=== PATIENT | female | born 1990 | race Caucasian/White ===

== ENCOUNTER 2016-05-10 11:11 | Emergency (ER) | payer OTHER ==
[~2016-05-10] VITALS: Ht 162.6 cm; Wt 68.8 kg
[2016-05-10 11:16] VITALS: TEMP 37.1; Ht 162.6 cm; Wt 68.8 kg
[2016-05-10] MEDS ORDERED: IBUP-1428 PO (11:46)
[2016-05-10 12:03] LABS: BASO % 0.6 %; BASO ABS # 0.04 K/uL (0-0.2); COMPLETE YES; EOS % 2.1 %; HEMATOCRIT 42.5 % (37-47); IG% 0.1 %; LYMPH % 20.7 %; LYMPH ABS # 1.41 K/uL (1.2-3.4); MEAN CELL VOLUME 85.7 fL (80-100); MEAN CORPUSCULAR HEMOGLOBIN 30.8 pg (25-34); MEAN PLATELET VOLUME 10.6 fL (7.4-10.4); MONO % 8.8 %; NEUT % 67.7 %; PLATELET COUNT 199 K/uL (130-400); RED BLOOD COUNT 4.96 M/uL (4.2-5.4)
[2016-05-10 12:28] LABS: BUN/CREATININE RATIO 7.7 (10-20); CALCIUM 9.5 mg/dl (8.5-10.1); CREATININE 1.2 mg/dl (0.60-1.20); POTASSIUM 3.6 mmol/L (3.5-5.1)
[2016-05-10 12:31] LABS: ALB/GLOB RATIO 1.1 (0.9-2)
[2016-05-10 13:26] LABS: URINE APPEARANCE CLOUDY (CLEAR); URINE BILIRUBIN NEG (NEG); URINE COLOR DK YELLOW; URINE EPITHELIAL CELL AUTO >30 /lpf (0-5); URINE NITRITE NEG (NEG); URINE SPECIFIC GRAVITY 1.025 (1.000-1.030); UROBILINOGEN NEG (NEG); ZZUR CULT IF INDIC CLEAN CATCH NO
[2016-05-10 13:31] LABS: MANUAL MICROSCOPIC REQUIRED? NO; REVIEW REQ? NO
[2016-05-10 14:33] VITALS: BP 124/60; PULSE 71; O2SAT 97
--- NOTE | 2016-05-10 15:03 | DIAGNOSTIC IMAGING REPORT ---
RIGHT RIBS UNILATERAL WITH PA CHEST CLINICAL HISTORY: right rib pain eval for fx/ptx/pna Right COMPARISON STUDY: None FINDINGS: Negative right ribs. Negative chest. IMPRESSION: Negative study Electronically signed by: Ger Rae M.D. 05/10/2016 3:01 PM Dictated Date/Time: 05/10/2016 3:01 PM
--- NOTE | 2016-05-10 17:38 | EMERGENCY ROOM VISIT NOTE ---
History Report prepared by Gina: Lori Huynh Under the Supervision of: Dr. Jayro Gordon M.D. First contact with patient: 12:21 Chief Complaint: GI ASSESSMENT Stated Complaint: PAIN IN MIDDLE OF CHEST AROUND RIGHT SIDE TO BACK Nursing Triage Summary: pt complains pain started 2 weeks ago in lower sternal area and radiated around to the right side of chest into the middle of back. [facility] but no relief. rate pain of 9/10 History of Present Illness The patient is a 26 year old female who presents to the Emergency Room with complaints of constant central chest pain that began 2 weeks ago. The pain radiates underneath her breasts through to her back. She describes the pain as stabbing. She notes that she cannot take as deep of a breath as usual because it makes her pain worse. She also complains of a cough for 4-5 days. She had a fever of 100.9 when her cough initially started but has not had a fever since then. The patient was initially seen at [facility] a week ago and had a chest x-ray and CT which were unrevealing. She was diagnosed with a UTI at that time. They were suspicious that the patient may have passed a kidney stone although the patient did not complain of any abdominal/flank pain at that time. She was put on Cipro and finished the course 2 days ago. The patient is not on control pills. She smokes about a half pack of cigarettes a day. She has not had any long trips recently. She does not have a personal history of blood clots. Denies leg swelling or pain or other complaints. Source of History: patient Onset: 2 weeks ago Position: chest Quality: stabbing Timing: constant Modifying Factors (Worsening): breathing (deep breaths) Associated Symptoms: + cough, + fevers (resolved) Review of Systems See HPI for pertinent positives & negatives. A total of 10 systems reviewed and were otherwise negative. Past Medical & Surgical Medical Problems: (1) Asthma Family History Cancer Diabetes mellitus FHx: gallbladder disease Heart disease Hypertension Kidney disease Kidney stones Lung disease Social History Smoking Status: Current Every Day Smoker Alcohol Use: none Marital Status: in relationship Housing Status: lives with significant other Occupation Status: employed Current/Historical Medications Scheduled PRN Ibuprofen (Motrin), 800 MG PO Q8H PRN for Pain Allergies Coded Allergies: [place] (Unverified Allergy, Unknown, HIVES, 05/10/16) Physical Exam Vital Signs Date Time Temp Pulse Resp B/P Pulse Ox O2 Delivery O2 Flow Rate FiO2 05/10/16 14:33 71 18 124/60 97 Room Air 05/10/16 12:49 64 18 118/66 100 Room Air 05/10/16 12:05 66 05/10/16 11:16 37.1 94 16 113/70 93 Room Air Physical Exam Constitutional: Vital signs reviewed. Eyes: Pupils are equal round reactive to light. Conjunctiva are noninjected. ENT: Pharynx is clear without erythema or exudate. Mucous membranes are moist. Neck supple without meningeal signs. Respiratory: Clear to auscultation bilaterally. Breath sounds are equal bilaterally. Cardiovascular: Regular rate and rhythm. No rubs or gallops. GI: Soft, nondistended and nontender. Bowel sounds are present. Musculoskeletal: No peripheral edema. No lower extremity tenderness. Tenderness over the right lower posterior and mid ribs without crepitus. Integumentary: No cyanosis. Neurological: The patient is awake and alert. No focal deficits. Psychiatric: Normal affect. Medical Decision & Procedures ER Provider Diagnostic Interpretation: Radiology results as stated below per my review and the radiologist's interpretation: RIGHT RIBS UNILATERAL WITH PA CHEST CLINICAL HISTORY: right rib pain eval for fx/ptx/pna Right COMPARISON STUDY: None FINDINGS: Negative right ribs. Negative chest. IMPRESSION: Negative study Electronically signed by: Ger Rae M.D. 05/10/2016 3:01 PM Dictated Date/Time: 05/10/2016 3:01 PM Laboratory Results 05/10/16 11:35 Red Blood Count 4.96, Mean Corpuscular Volume 85.7, Mean Corpuscular Hemoglobin 30.8, Mean Corpuscular Hemoglobin Concent 36.0, Mean Platelet Volume 10.6, Neutrophils (%) (Auto) 67.7, Lymphocytes (%) (Auto) 20.7, Monocytes (%) (Auto) 8.8, Eosinophils (%) (Auto) 2.1, Basophils (%) (Auto) 0.6, Neutrophils # (Auto) 4.60, Lymphocytes # (Auto) 1.41, Monocytes # (Auto) 0.60, Eosinophils # (Auto) 0.14, Basophils # (Auto) 0.04 05/10/16 11:35 Test 05/10/16 11:35 05/10/16 12:44 05/10/16 13:06 White Blood Count 6.80 K/uL (4.8-10.8) Red Blood Count 4.96 M/uL (4.2-5.4) Hemoglobin 15.3 g/dL (12.0-16.0) Hematocrit 42.5 % (37-47) Mean Corpuscular Volume 85.7 fL (80-100) Mean Corpuscular Hemoglobin 30.8 pg (25-34) Mean Corpuscular Hemoglobin Concent 36.0 g/dl (32-36) Platelet Count 199 K/uL (130-400) Mean Platelet Volume 10.6 fL (7.4-10.4) Neutrophils (%) (Auto) 67.7 % Lymphocytes (%) (Auto) 20.7 % Monocytes (%) (Auto) 8.8 % Eosinophils (%) (Auto) 2.1 % Basophils (%) (Auto) 0.6 % Neutrophils # (Auto) 4.60 K/uL (1.4-6.5) Lymphocytes # (Auto) 1.41 K/uL (1.2-3.4) Monocytes # (Auto) 0.60 K/uL (0.11-0.59) Eosinophils # (Auto) 0.14 K/uL (0-0.5) Basophils # (Auto) 0.04 K/uL (0-0.2) RDW Standard Deviation 40.0 fL (36.4-46.3) RDW Coefficient of Variation 12.8 % (11.5-14.5) Immature Granulocyte % (Auto) 0.1 % Immature Granulocyte # (Auto) 0.01 K/uL (0.00-0.02) Anion Gap 6.0 mmol/L (3-11) Est Creatinine Clear Calc Drug Dose 68.9 ml/min Estimated GFR () 73.3 Estimated GFR (Non- 63.2 BUN/Creatinine Ratio 7.7 (10-20) Calcium Level 9.5 mg/dl (8.5-10.1) Total Bilirubin 0.4 mg/dl (0.2-1) Aspartate Amino Transf (AST/SGOT) 12 U/L (15-37) Alanine Aminotransferase (ALT/SGPT) 16 U/L (12-78) Alkaline Phosphatase 77 U/L (45-117) Total Protein 8.1 gm/dl (6.4-8.2) Albumin 4.3 gm/dl (3.4-5.0) Globulin 3.8 gm/dl (2.5-4.0) Albumin/Globulin Ratio 1.1 (0.9-2) Lipase 60 U/L (73-393) Bedside D-Dimer 426 ng/mlFEU (0-450) Bedside Troponin I 0.000 ng/ml (0-0.045) Urine Color DK YELLOW Urine Appearance CLOUDY (CLEAR) Urine pH 5.0 (4.5-7.5) Urine Specific [place] 1.025 (1.000-1.030) Urine Protein NEG (NEG) Urine Glucose (UA) NEG (NEG) Urine Ketones TRACE (NEG) Urine Occult Blood NEG (NEG) Urine Nitrite NEG (NEG) Urine Bilirubin NEG (NEG) Urine Urobilinogen NEG (NEG) Urine Leukocyte Esterase NEG (NEG) Urine WBC (Auto) 1-5 /hpf (0-5) Urine RBC (Auto) 0-4 /hpf (0-4) Urine Hyaline Casts (Auto) 1-5 /lpf (0-5) Urine Epithelial Cells (Auto) >30 /lpf (0-5) Urine Bacteria (Auto) NEG (NEG) Urine Test NEG (NEG) Laboratory results as reviewed by me. ECG Indication: chest pain Rate (beats per minute): 62 Rhythm: normal sinus Findings: no acute ischemic change, no ectopy ED Course 1220: The patient was evaluated in room B12A. A complete history and physical exam was performed. 1240: I reviewed the patient's records from her recent visit to [place] ED. Her chest CT was negative for PE or aortic dissection. Her urine did show infection. 1404: I reassessed the patient and talked to her about results so far. We are waiting on her x-ray. 1453: I reassessed the patient and discussed test results with her. She agreed with the treatment plan. She was discharged home. Medical Decision This is a 26-year-old female presents with right-sided chest pain. Differential diagnosis includes pleurisy, pneumothorax, pneumonia, pericarditis , pulmonary embolism. I did perform a limited focused review of portions of the patient's old chart on the electronic medical record. The patient has had no previous visits to this hospital. I did evaluate the patient as noted above. I did obtain records from [facility]. The patient had a CT of the chest which was negative for pulmonary embolism or aortic dissection. She had a urinalysis which did show signs of infection. IV access was established. The patient was placed on a continuous alarm security or surveillance monitor. I did order and personally review the patient's 12-lead EKG and rib/chest x-rays as described above. I did order and review the patient's blood work as noted in the electronic medical record. Troponin and d-dimer are negative. I did discuss the test results with the patient and her family. At this time her pain is reproducible appears to be musculoskeletal in nature. I did recommend anti-inflammatories and close follow up with her regular physician. She was discharged in good condition and given a work. Impression Primary Impression: Right-sided chest pain Additional Impression: Cough Scribe Attestation The scribe's documentation has been prepared under my direct and personally reviewed by me in its entirety. I confirm that the note above accurately reflects all work, treatment, procedures, and medical decision making performed by me. Departure Information Dispostion Home / Self-Care Referrals Kate Escalante PA-C Patient Instructions ED Chest Pain Atypical Unkn Cause, My [facility] Additional Instructions You have been examined and treated today on an emergency basis only. This is not a substitute for, or an effort to provide, complete comprehensive medical care. It is impossible to recognize and treat all injuries or illnesses in a single emergency department visit. It is therefore important that you follow up closely with your physician. Call as soon as possible for an appointment. Return for worsening symptoms or if you develop shortness of breath, vomiting, or any other concerning symptoms. Problem Qualifiers
== END 2016-05-10 15:03 | disposition home or self-care (01) ==
LOC: C.EDB 11:16
DX: R07.9 Chest pain, unspecified (principal); R05 Cough; J45.909 Unspecified asthma, uncomplicated; F17.200 Nicotine dependence, unspecified, uncomplicated; Z91.018 Allergy to other foods; Z80.9 Family history of malignant neoplasm, unspecified; Z83.3 Family history of diabetes mellitus; Z83.79 Family history of other diseases of the digestive system; Z82.49 Family history of ischemic heart disease and other diseases of the circulatory system; Z84.1 Family history of disorders of kidney and ureter